=== PATIENT | female | born 1950 | race Caucasian/White ===

== ENCOUNTER 2016-09-13 22:09 | Inpatient (IN) | payer MEDICARE, MEDICAID ==
[~2016-09-13] VITALS: Ht 162.6 cm; Wt 90.8 kg
[~2016-09-13 22:09] MED LIST: ALPR0.5T6 PO; CITA20TA11 PO; LISI20TA PO; METO-448 PO; NORC 5-325 GTB; RES15 PO; RISP2TAB PO; SLOMAG PO
[2016-09-13 22:10] VITALS: Ht 162.6 cm; Wt 90.8 kg
[2016-09-13] MEDS ORDERED: DEXTROSE 10% 1,000 ML IV STA (22:31)
[2016-09-13] MEDS ORDERED: LEVO25TA50 PO (22:45)
[2016-09-13] MEDS ORDERED: AMLO5TAB4 PO (22:45)
[2016-09-13] MEDS ORDERED: PANT40TA4 PO (22:46)
[2016-09-13] MEDS ORDERED: FURO20TA3 PO (22:46)
[2016-09-13] MEDS ORDERED: ISOS30TA5 PO (22:46)
[2016-09-13] MEDS ORDERED: ESCI10TA PO (22:47)
[2016-09-13] MEDS ORDERED: AMIO200T2 PO (22:47)
[2016-09-13] MEDS ORDERED: ATOR80TA75 PO (22:47)
--- NOTE | 2016-09-13 22:49 | ERA ---
ER Documentation Chief Complaint Date/Time DATE: 09/13/16 TIME: 22:48 Chief Complaint ALOC/ nonresponsive, blood sugar less than 20 HPI The patient is a 65-year-old female, presenting to the ER because of altered level of consciousness since possibly 8 PM according to the nursing staff. The last known normal was unknown. When the EMS arrived, Accu-Chek was less than 20. She was treated with glucagon 1 mg IM with minimal response. 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 Medications Home Meds Reported Medications Atorvastatin* (Atorvastatin*) 80 Mg Tablet, 80 MG PO QHS, #30 TAB 09/13/16 Amiodarone Hcl* (Amiodarone Hcl*) 200 Mg Tablet, 200 MG PO BID, #60 TAB 09/13/16 Escitalopram Oxalate* (Lexapro*) 10 Mg Tablet, 10 MG PO DAILY, #30 TAB 09/13/16 Pantoprazole* (Pantoprazole*) 40 Mg Tablet.dr, 40 MG PO DAILY, TAB 09/13/16 Furosemide* (Furosemide*) 20 Mg Tablet, 20 MG PO DAILY, #60 TAB 09/13/16 Isosorbide Mononitrate* (Isosorbide Mononitrate*) 30 Mg Tab.er.24h, 30 MG PO DAILY, TAB 09/13/16 Amlodipine Besylate* (Norvasc*) 5 Mg Tablet, 5 MG PO DAILY, TAB 09/13/16 Levothyroxine Sodium* (Levoxyl*) 25 Mcg Tablet, 25 MCG PO BEFORE BREAKFAST, #30 TAB 09/13/16 Discontinued Reported Medications Temazepam (Restoril) 15 Mg Cap, 15 MG PO PRN 07/16/13 Hydrocodone Bit-Acetaminophen* (Irving*) 1 Tab Tab, 1 TAB GTB PRN 07/16/13 Alprazolam* (Alprazolam*) 0.5 Mg Tablet, 0.5 MG PO Q6HRS PRN 07/16/13 Risperidone (Risperdal) 2 Mg/Tab Tab.rapdis, 2 MG PO QHS 07/16/13 Metoprolol Tartrate* (Lopressor*) 25 Mg Tab, 25 MG PO DAILY 07/16/13 Magnesium Chloride* (Mag 64*) 64 Mg Tabsr, 64 MG PO DAILY 07/16/13 Lisinopril* (Prinivil*) 20 Mg Tablet, 20 MG PO DAILY 07/16/13 Citalopram Hydrobromide* (Celexa*) 20 Mg Tablet, 20 MG PO DAILY 07/16/13 Allergies Allergies: Coded Allergies: No Known Drug Allergies (Verified Allergy, Unknown, 09/13/16) PMhx/Soc Hx Neurological Disorder: Yes (cognitive impairment) Hx Respiratory Disorders: No ( Asthma when she was a child) Hx Cardiac Disorders: No (HTN) Hx Miscellaneous Medical Probl: Yes Hx Alcohol Use: No Hx Substance Use: No Hx Tobacco Use: No Physical Exam Vitals Vital Signs Date Time Temp Pulse Resp B/P Pulse Ox O2 Delivery O2 Flow Rate FiO2 09/14/16 01:15 92 16 94/51 100 Mechanical Ventilator 09/14/16 01:00 91 16 83/69 100 Mechanical Ventilator 09/14/16 00:45 91 16 91/69 100 Mechanical Ventilator 09/14/16 00:30 92 16 99/76 100 Mechanical Ventilator 09/14/16 00:15 93 16 123/109 100 Mechanical Ventilator 09/14/16 00:00 91 16 74/31 100 Mechanical Ventilator 09/13/16 23:45 89 16 74/31 100 Mechanical Ventilator 09/13/16 23:30 93 20 93 100 09/13/16 23:20 98.6 90 16 53/34 100 Mechanical Ventilator 09/13/16 23:01 Non Rebreather 15 09/13/16 22:45 72 24 100 Mechanical Ventilator 09/13/16 22:43 88 20 100 100 09/13/16 22:22 69 26 149/122 98 Mechanical Ventilator 09/13/16 22:10 98.0 115 16 144/129 84 Physical Exam Const: acute distress. Head: Atraumatic. Eyes: Normal Conjunctiva. ENT: Normal External Ears, Nose and Mouth. Neck: Full range of motion. No meningismus. Resp: Labored and shallow Cardio: Regular tachycardic Abd: Soft, obese, normal bowel sounds Skin: No petechiae or rashes. Back: No midline or flank tenderness. Ext: No cyanosis, or edema. Neur: Obtunded GCS of 3 Psych: Unable to perform due to condition. Result Diagram: 09/13/16224909/13/162249 Results 24 hrs Laboratory Tests Test 09/13/16 22:32 09/13/16 22:50 09/13/16 22:55 09/13/16 23:15 Bedside Glucose 162mg/dL White Blood Count 24.610^3/ul Red Blood Count 3.4610^6/ul Hemoglobin 10.0g/dl Hematocrit 29.6% Mean Corpuscular Volume 85.5fl Mean Corpuscular Hemoglobin 28.9pg Mean Corpuscular Hemoglobin Concent 33.8g/dl Red Cell Distribution Width 20.2% Platelet Count 76204^3/UL Mean Platelet Volume 10.1fl Neutrophils % 88.0% Band Neutrophils % 6.0% Lymphocytes % 4.0% Monocytes % 2.0% Neutrophils # 21.610^3/ul Lymphocytes # 1.010^3/ul Monocytes # 0.510^3/ul Platelet Estimate PLT APPEAR ADEQUATE Sodium Level 125mmol/L Potassium Level 4.8mmol/L Chloride Level 95mmol/L Carbon Dioxide Level 9mmol/L Anion Gap 26 Blood Urea Nitrogen 18mg/dl Creatinine 2.30mg/dl Glucose Level 217mg/dl Lactic Acid Level 11.3mmol/L Calcium Level 6.5mg/dl Magnesium Level 2.0mg/dl Total Bilirubin 2.3mg/dl Direct Bilirubin 1.90mg/dl Indirect Bilirubin 0.4mg/dl Aspartate Amino Transf (AST/SGOT) 1424IU/L Alanine Aminotransferase (ALT/SGPT) 398IU/L Alkaline Phosphatase 481IU/L Creatine Kinase 520IU/L Troponin I 0.075ng/ml Total Protein 5.1g/dl Albumin 1.7g/dl Globulin 3.40g/dl Albumin/Globulin Ratio 0.50 Salicylates Level < 1.0mg/dl Acetaminophen Level < 10.0ug/ml Ethyl Alcohol Level < 10.0mg/dl Prothrombin Time 25.2Sec Prothrombin Time Ratio 2.0 INR International Normalized Ratio 2.26 Activated Partial Thromboplast Time Sec Blood Gas Specimen Source Blood arterial Arterial Blood Date Drawn 09/14/2016 1:17:34 AM Arterial Blood pH (Temp corrected) 7.153 Arterial Blood pCO2 (Temp correct) 21.0mmhg Arterial Blood pO2 (Temp corrected) 98.7mmHG Arterial Blood HCO3 7.3mmol/L Arterial Blood Base Excess -20.0mmol/L Arterial Blood Oxygen Saturation 95.7mmHG Dhruv Test N/A Arterial Blood Gas Puncture Site Femoral Arterial Blood Carboxyhemoglobin 0.3% Arterial Blood Methemoglobin 0.5% Blood Gas A-a O2 Differential 595.9mmHg Oxyhemoglobin Percent 94.9% Total Hemoglobin 11.5g/dl Blood Gas Temperature 36.0C Blood Gas Respiration Rate 20.0 Blood Gas Actual Respiration Rate 20 Blood Gas Modality VENT - AC FiO2 100.0% Blood Gas Tidal Volume 600.0mL Blood Gas Low PEEP Setting 5.0cmH2O Blood Gas Critical Value Read Back MILLA WAYNE Blood Gas Notified Whom Loly MURILLO RCP Blood Gas Notified Time 09/14/2016 1:23:59 AM Test 09/14/16 00:20 Lactic Acid Level 10.7mmol/L Current Medications Medications (Trade) Dose Ordered Sig/Demetra Route PRN Reason Start Time Stop Time Status Last Admin Dose Admin Dextrose 1,000 ml @ 150 mls/hr Q6H40M STAT IV 09/13/16 22:31 09/14/16 05:10 Sodium Chloride 3,410 ml @ 3,410 mls/hr BOLUS X1 ONCE IV 09/13/16 23:30 09/14/16 00:29 DC 09/14/16 00:16 Norepinephrine 250 ml @ ud STK-MED ONCE .ROUTE 09/13/16 23:26 09/13/16 23:27 DC Vancomycin HCl 250 ml @ 125 mls/hr ONCE IVPB 09/14/16 00:00 09/14/16 01:59 DC 09/14/16 00:43 Imipenem/ Cilastatin Sodium 100 ml @ 100 mls/hr ONCE ONCE IVPB 09/14/16 00:00 09/14/16 00:59 DC 09/14/16 00:43 Norepinephrine (Levophed) 250 ml @ 1.875 mls/ hr TITRATE IV 09/14/16 00:00 09/14/16 03:52 Procedures/MDM [place] [id number] Radiology Main Line: [phone] DIAGNOSTIC IMAGING REPORT Patient: APRIL TABARES : 1950 Age: 65 Sex: F MR #: [id number] DOS: 09/13/162228 Ordering MD: ESTEFANÍA LOYOLA MD Location: E/R Room/Bed: PROCEDURE: XR Chest. CLINICAL INDICATION: Endotracheal tube placement. TECHNIQUE: Portable AP upright view of the chest was obtained. COMPARISON: None. FINDINGS: The cardiomediastinal silhouette is within upper normal limits. Distal tip of the endotracheal tube projects 2.7 cm above the bella in satisfactory position. The lungs are clear. There is no evidence for pleural effusion, pneumothorax or pulmonary vascular congestion. The osseous structures are intact with no evidence for acute abnormality. RPTAT:HJJR IMPRESSION: 1. Distal tip of the endotracheal tube projecting 2.7 cm above the bella in satisfactory position. 2. Otherwise no evidence for acute intrathoracic pathology. Physician Levi Date Time Electronically viewed and signed by Shailesh Zambrano Physician on 09/13/2016 23:57 JR/ CC: ESTEFANÍA LOYOLA MD [place] [address] Radiology Main Line: [phone] DIAGNOSTIC IMAGING REPORT Patient: APRIL TABARES : 1950 Age: 65 Sex: F MR #: [id number] DOS: 09/13/162228 Ordering MD: ESTEFANÍA LOYOLA MD Location: E/R Room/Bed: PROCEDURE: CT Brain without contrast. CLINICAL INDICATION: Acute loss of consciousness TECHNIQUE: A CT of the brain was performed on a [place] 64-slice CT scanner utilizing axial imaging from the skull base through the vertex without IV contrast. Multiplanar reformatted images were made. Images were reviewed on a PACS workstation. The CTDIvol is 43.05 mGy and the DLP is 720.23 mGycm. One of the following 3 dose reduction techniques were used: Automated exposure control; adjustment of the mA and/or kV according to patient size; or use of iterative reconstruction technique. COMPARISON: 07/16/2013 CT brain FINDINGS: There is no intracranial hemorrhage, mass effect, or midline shift. No extra- axial fluid collection is seen. The ventricles and sulci are age appropriate. Mild diffuse volume loss is present. Subtle decreased attenuation is present in the bilateral subcortical white matter, bilateral centrum semiovale and bilateral periventricular white matter compatible with mild chronic microvascular ischemic disease. decreased attenuation is also noted in the bilateral insula. Mild vascular calcifications are present of the intracranial internal carotid arteries. The visualized scalp and calvarium are normal. The bilateral orbits are normal. The bilateral paranasal sinuses are remarkable for chronic mucosal thickening in the left anterior and posterior ethmoid sinus. The bilateral mastoid air cells and middle ear cavities are clear. IMPRESSION: 1. No evidence of acute intracranial hemorrhage, infarcts or acute intracranial pathology. Consider MRI with diffusion to further evaluate. 2. Mild chronic bilateral microvascular ischemic disease and diffuse volume loss. 3. Mild atherosclerotic vascular disease. 4. Chronic left ethmoid sinus disease. RPTAT: HDC .Mackenzie Reza MD, MD Date Time Electronically viewed and signed by .Mackenzie Reza MD, MD on 09/13/2016 23: 30 .C/ CC: ESTEFANÍA LOYOLA MD Abdominal pelvic CT is pending EKG: Read by emergency physician Rate/Rhythm: Normal Sinus Rhythm 90 beats/min QRS, ST, T-waves: No ST elevation, no T inversion, first-degree AV block Impression: Abnormal EKG MEDICAL MAKING DECISION: Upon arrival to the ER, she was treated with 2 A of D50 IV, Accu-Chek was 162. However she remains obtunded nonresponsive and unable to protect her airway. She was seen immediately intubated without any difficulty. She went treated with nasogastric tube, Worthington catheter. She was treated with D10 water at 150 mL /h Accu-Chek will be done every hour She was treated with normal saline 30 mL/kg, vancomycin IV, imipenem IV, Levophed drip, dopamine drip, Vlad-Synephrine drip The differential diagnoses considered include but are not limited to medication non-compliance, alcohol intoxication or withdrawal, drug intoxication or withdrawal, endocrine disorder, trauma, CVA, tumor, metabolic encephalopathy, septic encephalopathy pneumonia, pyelonephritis. Admit MDM: Patient's infectious symptoms have not stabilized and the patient is at risk of rapid decompensation. The patient will be admitted for careful hydration, antibiotic therapy, and infectious source control. Severe Sepsis criteria: Infectious source: Unknown End organ damage indicated by: Lactate > 2.0 mmol/L Hypotension (SBP < 90 or >40 mmHG drop or MAP < 65) Acute Resp Failure (sat < 92% w/o oxygen) Sepsis Management: Time of recognition of severe sepsis/septic shock: 23 hr Within 3 hours of recognition: Blood cultures x 2 before broad-spectrum antibiotics: Yes 30 ml/kg NS bolus completed Initial lactate 11.3 Repeat lactate pending Critical Care: Critical care time 75 minutes Emergent fluid management while maintaining close respiratory support. Provision of immediate and broad-spectrum antibiotic therapy. Simultaneous assessment for possible sources in order to direct targeted therapy. Consideration for invasive and chemical support to prevent cardiopulmonary collapse. Septic Shock Assessment: Any lactic acid > 4.0 yes Persistent hypotension (SBP < 90 or 40 mmHg drop, MAP < 65) despite 30 mL/kg IV fluid bolusyes Volume Re-assessment for Septic Shock (post 30 ml/kg bolus): Temp98, BP85/63, HR98, RR16, Pox100 on vent Heart regular rate & rhythm Lungs no crackles Skin Warm & dry & pink Cap Refill less than 2 seconds Peripheral pulses radially present Persistent Hypotension Treatment: Comfort care yes Central line rt femoral vein Vasopressor started Norepinehrine, dopamine I considered further perfusion assessment with CVP measurement, SCVO2, bedside ultrasound volume assessment, passive leg raise, trial of further fluid bolus. And proceeded with pressors Endotracheal Intubation by me: Pre assessment performed. See preceding note for details. She went pretreated with etomidate 20 mg IV, rocuronium 80 mg IV Pre-oxygenation performed with 100% oxygen RSI: Performed w/o complication or hypoxic events. Medications as ordered. Blade: Knox scope ET Tube: 7.5 cm Depth: 21 cm at the lip Intubation confirmed by colorimetric CO2, equal breath sounds, quiet over the stomach. Central Line Placement by me: Patient consented, sterilely draped, full prep, gown, glove, mask, time out performed. Anesthesia: 1% lidocaine locally Location: Right femoral vein Device: Multiple lumen Technique: Seldinger technique. Secured with suture. Results: Venous return from all ports with easy saline flush. No complications. Guide wire retrieved and disposed of. [ED Ultrasound: Central line placed by me using concurrent ultrasound guidance. Real time image archived in the medical record confirms vascular anatomy. ESTEFANÍA LOYOLA MD Sep 13, 2016 22:49 Guide wire retrieved and disposed of. [ED Ultrasound: Central line placed by me using concurrent ultrasound guidance. Real time image archived in the medical record confirms vascular anatomy. ESTEFANÍA LOYOLA MD Sep 13, 2016 22:49
[2016-09-13 22:57] LABS: ADD SCAN DIFF NO
[2016-09-13 23:05] LABS: ABNORMAL IP MESSAGE 1; HEMATOCRIT 29.6 % (37.0-47.0); MEAN CORPUSCULAR HEMOGLOBIN 28.9 pg (29.0-33.0); MEAN CORPUSCULAR HGB CONC 33.8 g/dl (32.0-37.0); MEAN CORPUSCULAR VOLUME 85.5 fl (82.0-101.0); MEAN PLATELET VOLUME 10.1 fl (7.4-10.4); PLATELET COUNT 339 10^3/UL (140-415); RED BLOOD COUNT 3.46 10^6/ul (4.20-5.40); RED CELL DISTRIBUTION WIDTH 20.2 % (11.5-14.5); WHITE BLOOD COUNT 24.6 10^3/ul (4.8-10.8)
[2016-09-13 23:20] VITALS: TEMP 98.6
[2016-09-13 23:26] LABS: INR 2.26; PROTIME 25.2 Sec (12.2-14.2)
[2016-09-13] MEDS ORDERED: NORepinephrine 8MG/250 ML (PMX 250 ML ONE (23:26)
[2016-09-13] MEDS ORDERED: SOD CHLORIDE 0.9% IV ONE (23:30)
--- NOTE | 2016-09-13 23:31 | RADRPT ---
PROCEDURE: CT Brain without contrast. CLINICAL INDICATION: Acute loss of consciousness TECHNIQUE: A CT of the brain was performed on a [employer] III 64-slice CT scanner utilizing axial imaging from the skull base through the vertex without IV contrast. Multiplanar reformatted images were made. Images were reviewed on a PACS workstation. The CTDIvol is 43.05 mGy and the DLP is 720 .23 mGycm. One of the following 3 dose reduction techniques were used: Automated exposure control; adjustment of the mA and/or kV according to patient size; or use of iterative reconstruction technique. COMPARISON: 07/16/2013 CT brain FINDINGS: There is no intracranial hemorrhage, mass effect, or midline shift. No extra-axial fluid collection is seen. The ventricles and sulci are age appropriate. Mild diffuse volume loss is present. Subtl e decreased attenuation is present in the bilateral subcortical white matter, bilateral centrum semi ovale and bilateral periventricular white matter compatible with mild chronic microvascular ischemic disease. decreased attenuation is also noted in the bilateral insula. Mild vascular calcification s are present of the intracranial internal carotid arteries. The visualized scalp and calvarium are normal. The bilateral orbits are normal. The bilateral para nasal sinuses are remarkable for chronic mucosal thickening in the left anterior and posterior ethmo id sinus. The bilateral mastoid air cells and middle ear cavities are clear. IMPRESSION: 1. No evidence of acute intracranial hemorrhage, infarcts or acute intracranial pathology. Consider MRI with diffusion to further evaluate. 2. Mild chronic bilateral microvascular ischemic disease and diffuse volume loss. 3. Mild atherosclerotic vascular disease. 4. Chronic left ethmoid sinus disease. RPTAT: HDC .Mackenzie Reza MD, MD Date Time Electronically viewed and signed by .Mackenzie Reza MD, MD on 09/13/2016 23:30 .C/
--- NOTE | 2016-09-13 23:57 | RADRPT ---
PROCEDURE: XR Chest. CLINICAL INDICATION: Endotracheal tube placement. TECHNIQUE: Portable AP upright view of the chest was obtained. COMPARISON: None. FINDINGS: The cardiomediastinal silhouette is within upper normal limits. Distal tip of the endotracheal tube projects 2.7 cm above the bella in satisfactory position. The lungs are clear. There is no evide nce for pleural effusion, pneumothorax or pulmonary vascular congestion. The osseous structures are intact with no evidence for acute abnormality. RPTAT:HJJR IMPRESSION: 1. Distal tip of the endotracheal tube projecting 2.7 cm above the bella in satisfactory position. 2. Otherwise no evidence for acute intrathoracic pathology. Physician Levi Date Time Electronically viewed and signed by Physician Levi on 09/13/2016 23:57 JR/
[2016-09-14] VITALS (34 sets, daily range): BP systolic 39–108; BP diastolic 19–91; PULSE 0–88; RESP 12–22
[2016-09-14] MEDS ORDERED: IMIPENEM-CILAST 500MG IV (PMX) 100 ML IVPB ONE
[2016-09-14] MEDS ORDERED: ETOMIDATE 20 MG INJ ONE
[2016-09-14] MEDS ORDERED: VANCOMYCIN 1 GM (PMX) 250 ML IVPB SCH
[2016-09-14] MEDS ORDERED: ROCURONIUM 50 MG INJ ONE
[2016-09-14 00:16] LABS: ALBUMIN 1.7 g/dl (3.3-4.9); CHLORIDE 95 mmol/L (97-110); SODIUM 125 mmol/L (135-144)
[2016-09-14 00:17] LABS: POTASSIUM 4.8 mmol/L (3.5-5.1)
[2016-09-14 00:18] LABS: ANION GAP 26 (8-16); BILIRUBIN,INDIRECT 0.4 mg/dl (0-1.1); BILIRUBIN,TOTAL 2.3 mg/dl (0.2-1.3)
[2016-09-14 00:19] LABS: ALANINE AMINOTRANSFERASE 398 IU/L (13-69); ALKALINE PHOSPHATASE 481 IU/L (42-121); BLOOD UREA NITROGEN 18 mg/dl (7-20); CALCIUM 6.5 mg/dl (8.4-10.2); CREATINE KINASE 520 IU/L (23-200); GLUCOSE 217 mg/dl (70-220); TOTAL PROTEIN 5.1 g/dl (6.1-8.1)
[2016-09-14 00:31] LABS: TROPONIN-I 0.075 ng/ml (0.00-0.12)
[2016-09-14 00:35] LABS: ASPARTATE AMINO TRANSFERASE 1424 IU/L (15-46)
[2016-09-14 00:37] LABS: ACETAMINOPHEN < 10.0 ug/ml (10.0-30.0); ETHANOL < 10.0 mg/dl; SALICYLATE < 1.0 mg/dl (5.0-30.0)
[2016-09-14 00:40] LABS: CARBON DIOXIDE 9 mmol/L (21-31)
[2016-09-14 00:59] LABS: MONOCYTE # 0.5 10^3/ul (0.3-0.9); NEUTROPHIL # 21.6 10^3/ul (1.6-7.5)
[2016-09-14 01:00] LABS: PLATELET ESTIMATE PLT APPEAR ADEQUATE
[2016-09-14 01:24] LABS: AADO2 Arterial 595.9 mmHg (7.0-24.0); Arterial COHb 0.3 % (0.0-3.0); Arterial Fraction of Oxyhgb 94.9 % (93.0-99.0); Arterial HCO3 7.3 mmol/L (22.0-26.0); Arterial MetHb 0.5 % (0.0-1.5); Arterial Total Hemglobin 11.5 g/dl (12.0-18.0); MODE VENT - AC
[2016-09-14 02:43] LABS: INR 2.54; PROTIME 27.7 Sec (12.2-14.2); PT RATIO 2.2
[2016-09-14] MEDS: DOPamine-D5W 1.6 MG/ML 250 ML IV SCH ×3 (02:45→09:05)
[2016-09-14 02:53] LABS: PARTIAL THROMBOPLASTIN TIME 120.4 Sec (25.0-35.0)
[2016-09-14] MEDS: NORepinephrine 8MG/250 ML (PMX 250 ML IV SCH ×2 (03:52→04:53)
[2016-09-14] MEDS: PHENYLephrine 20MG IN 250 ML 250 ML IV SCH ×2 (03:53→04:54)
[2016-09-14] MEDS ORDERED: VASOPRESSIN 60 UNIT in DEXTROSE 5% 57 ML IV SCH (04:00)
[2016-09-14] MEDS ORDERED: SOD CHLORIDE 0.9% 1,000 ML IV ONE ×2 (04:05→08:30)
--- NOTE | 2016-09-14 04:19 | RADRPT ---
PROCEDURE: CT of the abdomen and pelvis without contrast CLINICAL INDICATION: Abdominal distension. TECHNIQUE: Spiral CT images through the abdomen and pelvis without the use of contrast. The admin istered radiation dose is CTDI 27.6 and DLP 1640.3. One or more of the following dose reduction kayla hniques were used: automated exposure control, adjustment of the mA and/or kV according to patient s ize, or use of iterative reconstruction technique. COMPARISON: None FINDINGS: Lack of oral and intravenous contrast somewhat limits evaluation. Small bilateral pleural effusio ns are seen with associated compressive atelectasis.. Moderate subdiaphragmatic free fluid is seen on the left. Mild ascites is seen elsewhere throughout the abdomen pelvis.. The study is limited by body habitus. Cardiomegaly. Aortic and coronary art alysia calcification. Trace pericardial fluid. The liver is slightly enlarged, measuring 18 cm in don gth. Small probable cyst anteriorly in the right lobe. The spleen does not appear enlarged. The s tomach is distended with air and fluid.. The right adrenal, kidneys, and pancreas are unremarkable in appearance. There is a 1.1 cm left adrenal nodule which may represent an adenoma but is difficul t to characterize due to artifact from body habitus and the patient's arms. Diffuse edema of the krishnan bcutaneous fat is seen. The appendix is normal in appearance. Mild prominence of the urinary bladde r wall is likely due to under-distension. Right femoral venous line is seen in place. There is a la rge lobulated fluid collection medial to the line in the right groin measuring 6.3 x 4.3 cm. Layering density is seen posteriorly and surrounding stranding is seen. The fluid collection extend s into the medial upper thigh. The uterus and left adnexa are unremarkable. Small probable right p araovarian cyst. Mild presacral stranding. Evaluation of the bowel is limited by lack of oral cont rast. Mild gaseous distension of small bowel loops is seen. Distension is most prominent in the le ft upper quadrant. There is not a distinct transition point, however. There is a suggestion of mil d wall thickening of the ascending colon. No evidence for diverticulitis. No definite pneumatosis or portal venous gas. Atherosclerotic change of the aorta and branches. There is mild degenerative change of the spine. IMPRESSION: Right femoral venous line with fairly large medial right thigh hematoma with some layering blood wit hin. Clinical observation to exclude ongoing or expanding hematoma is suggested. If pseudoaneurysm is suspected clinically, Doppler ultrasound evaluation could be performed. Mild distension of multiple small bowel loops without definite transition point, pneumatosis, or por kevin venous gas. Suggestion of mild colonic wall thickening. Mild colitis and secondary ileus would be most likely. If symptoms persist or worsen, study with oral contrast could be considered. Free fluid particularly in the left upper quadrant. Small effusions with bibasilar atelectasis. Possible small left adrenal adenoma.. Results were called to Robb Bell at 09/14/2016 4:15:25 AM RPTAT: HLBE Lita Conde Physician Date Time Electronically viewed and signed by Lita Conde Physician on 09/14/2016 04:18 LE/
[2016-09-14] MEDS ORDERED: LORAZEPAM 2 MG INJ IV PRN (04:30)
[2016-09-14] MEDS ORDERED: ONDANSETRON 4 MG INJ IV PRN (04:30)
[2016-09-14] MEDS ORDERED: morphine 2 MG INJ IV PRN (04:30)
[2016-09-14] MEDS ORDERED: ACETAMINOPHEN 650 MG SUPP PR PRN (04:30)
[2016-09-14] MEDS ORDERED: ACETAMINOPHEN 325 MG TAB PO PRN (04:30)
[2016-09-14] MEDS ORDERED: ALBUTEROL/IPRATROPIUM (NEB) 3 ML AMP NEB PRN (04:30)
[2016-09-14] MEDS ORDERED: VANCOMYCIN IV PER PHARMACY XX SCH (04:30)
[2016-09-14] MEDS ORDERED: DEXTROSE 5%-0.9% NACL 1,000 ML IV SCH (05:00)
[2016-09-14] MEDS ORDERED: EPINEPHrine 4 MG in SOD CHLORIDE 0.9% 246 ML IV SCH (05:15)
[2016-09-14 05:17] LABS: ADD SCAN DIFF NO
[2016-09-14] MEDS ORDERED: NA BICARBONATE 8.4% 50 ML SYG ONE ×2 (05:20→07:00)
[2016-09-14] MEDS ORDERED: NA BICARBONATE 8.4% 50 ML SYG IV ONE (05:31)
[2016-09-14 05:34] LABS: ABNORMAL IP MESSAGE 1; HEMATOCRIT 28.6 % (37.0-47.0); HEMOGLOBIN 9.2 g/dl (12.0-16.0); MEAN CORPUSCULAR HEMOGLOBIN 28.7 pg (29.0-33.0); MEAN CORPUSCULAR HGB CONC 32.2 g/dl (32.0-37.0); MEAN CORPUSCULAR VOLUME 89.1 fl (82.0-101.0); MEAN PLATELET VOLUME 10.2 fl (7.4-10.4); PLATELET COUNT 341 10^3/UL (140-415); RED BLOOD COUNT 3.21 10^6/ul (4.20-5.40); RED CELL DISTRIBUTION WIDTH 20.6 % (11.5-14.5)
[2016-09-14] MEDS ORDERED: SODIUM BICARBONATE (IV ADD) 100 MEQ in DEXTROSE 5%-0.9% NACL 900 ML IV SCH ×4 (05:45)
[2016-09-14] MEDS: PHENYLephrine 40 MG in DEXTROSE 5% 496 ML IV SCH ×2 (05:49→08:23)
[2016-09-14] MEDS ORDERED: PANTOPRAZOLE 40 MG INJ IV SCH (06:00)
[2016-09-14] MEDS ORDERED: PHYTONADIONE 5 MG in DEXTROSE 5% 50 ML IVPB ONE (06:00)
[2016-09-14] MEDS ORDERED: VANCOMYCIN 750 MG in SOD CHLORIDE 0.9% 150 ML IVPB ONE (06:00)
[2016-09-14 06:06] LABS: ALBUMIN 1.3 g/dl (3.3-4.9); ALBUMIN/GLOBULIN RATIO 0.46; BILIRUBIN,DIRECT 1.6 mg/dl (0.00-0.20); BILIRUBIN,INDIRECT 0.1 mg/dl (0-1.1); BILIRUBIN,TOTAL 1.7 mg/dl (0.2-1.3); CREATININE 1.47 mg/dl (0.44-1.00); POTASSIUM 4.3 mmol/L (3.5-5.1); TOTAL PROTEIN 4.1 g/dl (6.1-8.1)
[2016-09-14 06:11] LABS: CALCIUM 4.6 mg/dl (8.4-10.2)
[2016-09-14] MEDS ORDERED: CALCIUM GLUCONATE 10% 2 GM in SOD CHLORIDE 0.9% 100 ML IVPB ONE (06:30)
--- NOTE | 2016-09-14 06:55 | HP ---
DATE OF ADMISSION: 09/14/2016 TIME SEEN: 4:45 a.m. CHIEF COMPLAINT: Altered mentation. HISTORY: The patient is a 65-year-old female with a history of diabetes, hypertension, asthma, with probable COPD, depression/anxiety, bipolar disorder, hypothyroidism and cognitive impairment who was brought to the ER from a assisted facility for altered mentation and hypoglycemia. When EMS arrived, her blood glucose was found to be less than 20. She was given 1 mg of Glucagon with minim al response. The patient was unresponsive when she was arrived to the ER, and she never lost her pu lse. Initial blood pressure documented in the ER when she came in was 144/129 with a heart rate of 115, respiratory rate 16, temperature 98, and oxygen saturation 84%. After she was intubated, an lori r later, her blood pressure has been documented to be as low as 53/34. Her ABG on ventilator shows a pH of 7.15, pCO2 of 21, pO2 of 99, bicarbonate of 7. Her initial point of care glucose in the ER was 162 and it was 217 on her BMP. She had multiple lab abnormalities including a sodium of 125, creatinine 2.3, calcium 6.5, but with albumin of 1.7, total bilirubin 2.3, AST 1424, ALT 400, alkaline phosphatase almost 500, WBC of almost 25,000, hemoglobin 10. Her INR was also elevated about 2.5. While the patient was in the ER, she was started on multiple pressors. She was started on D10W for hypoglycemia. Note, however, that the fluid was without sodium and her initial sodium when she came in was still 125. Currently, she is in ICU and has been persistently hypotensive and on 4 pressors . Her blood pressure was mostly in the 60s. Epinephrine was just started right now and her blood p ressure just went up to 108/91. Currently, blood culture and urine culture are pending, but her uri ne looks cloudy and thick. No urinalysis is available so far. On her initial imaging, brain CT shows no acute findings. CT abdomen and pelvis was done and it luisa ws a fairly large medial right thigh hematoma where the right femoral venous line was placed. REVIEW OF SYSTEMS: Unable to assess. PAST MEDICAL HISTORY: As per HPI. PAST SURGICAL HISTORY: Left total knee surgery. SOCIAL HISTORY: Positive for ____ ALLERGIES: NO KNOWN DRUG ALLERGIES. HOME MEDICATIONS: 1. Amiodarone. 2. Norvasc. 3. Lipitor. 4. Imdur. 5. Lexapro. 6. Lasix. 7. Protonix. 8. Levothyroxine. PHYSICAL EXAMINATION VITAL SIGNS: Currently on the monitor 108/91, heart rate 77, respiratory rate 20, temperature earli er was 95, and oxygen saturation 96% on 100% FIO2. GENERAL: The patient is intubated, currently on 5 pressors. She is obese. She is unresponsive to noxious stimuli. HEENT: No obvious head deformity. Her pupils are dilated, nonreactive to light. No corneal reflex . The patient also does not have a gag reflex. CARDIOVASCULAR: Regular rate and rhythm. LUNGS: Decreased breath sounds anteriorly. ABDOMEN: Morbidly obese. EXTREMITIES: There is edema in both upper and lower extremities. There is also on the right upper thigh groin area, there is some swelling with some oozing of blood. NEUROLOGIC: The patient currently intubated. She is not responsive. No gag reflex, no corneal ref scott. Pupils are dilated and nonreactive and generalized. LABORATORY DATA: As mentioned in the HPI. IMAGING: Brain CT abdomen and CT of the abdomen pelvis results as mentioned in the HPI. IMPRESSION: 1. Severe septic shock, likely from urinary tract infection. 2. Altered mentation/unresponsiveness, secondary to hypoglycemia. 3. Severe hypoglycemia. 4. Ventilator dependent respiratory failure. 5. Presumed acute kidney injury. 6. Likely shock liver. 7. Hyponatremia. PLAN: We will continue ventilator support. Will continue pressor support. Note that currently she is on 5 pressors. She is going be continued on broad spectrum antibiotic. We will follow up on culture results. I will switch her fluids from D10W and will add sodium given the patient initial ly has been hyponatremic. We will place pulmonary, ID, nephrology as well as a neurology consult. Patient's neurological examination is suggestive of likely permanent brain damage. She is also curre ntly on 5 pressors. At this point, unfortunately, she does have a very poor prognosis. We will try to reach family members to discuss this issue. Further workup and management per clinical course. Total critical time spent is about 45 minutes. Dictated By: KEYON QUIROZ/HEATHER Conf#: [id number] [facility]#: [id number]
[2016-09-14 07:59] LABS: LYMPHOCYTES # 2.6 10^3/ul (0.8-2.9); NEUTROPHIL # 16.8 10^3/ul (1.6-7.5)
--- NOTE | 2016-09-14 08:08 | CONS ---
Date/Time of Note Date/Time of Note DATE: 09/14/16 TIME: 08:03 Assessment/Plan Assessment/Plan Additional Assessment/Plan Chest x-ray was reviewed from yesterday which is essentially clear. Patient also CT of the head done which is unremarkable. CT abdomen is showing stability mild colitis. Ventilator settings; AC of 20, tidal volume 600, PEEP of 5, 70% FiO2. Patient currently on Levophed at 30 mics per minute sodium bicarb drip at 75 mL/ h patient also received additional sodium bicarb intravenously. Dopamine 20 mcg /min and phenylephrine at cedar mics per minute Assessment recommendations; 1. Patient admitted for severe sepsis likely UTI 2. Multiple other comorbidities including history of diabetes, hypertension, asthma. 3. Profound shock. 5. Shock liver. 6. Profound metabolic acidosis. Continue current supportive care. Prognosis is extremely poor. Consultation Date/Type/Reason Admit Date/Time Sep 14, 2016 at 01:15 Date of Consultation: Sep 14, 2016 Type of Consultation: Pulmonary/critical care Reason for Consultation Pulmonary consultation requested for evaluation of respiratory failure. History presenting; patient is a 65-year-old lady who was admitted yesterday transferred [facility] with altered mental status, patient was diagnosed with severe hypoglycemia was given intravenous glucose however the patient condition did not improve and she developed respiratory failure and had to be intubated by the ER physician. Patient also has been severely hypotensive requiring high-dose combination pressor support. Remains unresponsive. History was obtained from medical records. Past medical history; 1. History of obesity 2. Diabetes. 3. Hypertension. 4. Asthma. 5. Cognitive impairment. 6. History of left knee surgery. Medications; were reviewed. Allergies; are none. Social history, family history, occupational history's are not available. Review of systems; currently unable to be obtained. General exam; elderly woman, orally intubated, unresponsive. Social History Smoking Status: Unknown if ever smoked Exam/Review of Systems Vital Signs Vitals Vital Signs Date Time Temp Pulse Resp B/P Pulse Ox O2 Delivery O2 Flow Rate FiO2 09/14/16 06:45 70 20 41/19 09/14/16 06:00 94 09/14/16 05:57 100 09/14/16 05:00 96.0 09/14/16 03:38 Mechanical Ventilator 09/13/16 23:01 15 Intake and Output 4/09/13/16 09/14/16 15:00 23:00 07:00 Intake Total 1754.95 ml Output Total 15 ml Balance 1739.95 ml Exam HEENT exam is; supple neck, JVD difficult to see because of thick neck, pupils are dilated nonreactive to light. Patient is strongly icteric. Has bilateral subconjunctival edema. No neck masses. No thyromegaly, no neck masses, orally intubated. Chest exam; diminished but clear vessel. S1-S2 audible, no murmurs. Regular rhythm. Abdomen exam is; protuberant, no scars are present. Umbilicus is inverted. Bowel sounds are absent. Extremity exam; trace peripheral edema. There is a hematoma around the right upper thigh. There is a right femoral central venous line in place. Pulses are feeble bilaterally. MIRROR INSPECTOR examination : patient remains unresponsive. Results Result Diagram: 09/14/16 0500 09/14/16 0500 Results 24 hrs Laboratory Tests Test 09/13/16 22:32 09/13/16 22:50 09/13/16 22:55 09/13/16 23:15 Bedside Glucose 162 White Blood Count 24.6 H Red Blood Count 3.46 L Hemoglobin 10.0 L Hematocrit 29.6 L Mean Corpuscular Volume 85.5 Mean Corpuscular Hemoglobin 28.9 L Mean Corpuscular Hemoglobin Concent 33.8 Red Cell Distribution Width 20.2 H Platelet Count 339 Mean Platelet Volume 10.1 Neutrophils % 88.0 H Band Neutrophils % 6.0 H Lymphocytes % 4.0 L Monocytes % 2.0 Neutrophils # 21.6 H Lymphocytes # 1.0 Monocytes # 0.5 Platelet Estimate PLT APPEAR ADEQUATE Sodium Level 125 L Potassium Level 4.8 Chloride Level 95 L Carbon Dioxide Level 9 *L Anion Gap 26 H Blood Urea Nitrogen 18 Creatinine 2.30 H Glucose Level 217 Lactic Acid Level 11.3 *H Calcium Level 6.5 L Magnesium Level 2.0 Total Bilirubin 2.3 H Direct Bilirubin 1.90 H Indirect Bilirubin 0.4 Aspartate Amino Transf (AST/SGOT) 1424 H Alanine Aminotransferase (ALT/SGPT) 398 H Alkaline Phosphatase 481 H Creatine Kinase 520 H Troponin I 0.075 Total Protein 5.1 L Albumin 1.7 L Globulin 3.40 H Albumin/Globulin Ratio 0.50 Salicylates Level < 1.0 L Acetaminophen Level < 10.0 L Ethyl Alcohol Level < 10.0 Prothrombin Time 25.2 H Prothrombin Time Ratio 2.0 INR International Normalized Ratio 2.26 Activated Partial Thromboplast Time Blood Gas Specimen Source Blood arterial Arterial Blood Date Drawn 09/14/2016 1:17:34 AM Arterial Blood pH (Temp corrected) 7.153 *L Arterial Blood pCO2 (Temp correct) 21.0 L Arterial Blood pO2 (Temp corrected) 98.7 Arterial Blood HCO3 7.3 *L Arterial Blood Base Excess -20.0 L Arterial Blood Oxygen Saturation 95.7 Dhruv Test N/A Arterial Blood Gas Puncture Site Femoral Arterial Blood Carboxyhemoglobin 0.3 Arterial Blood Methemoglobin 0.5 Blood Gas A-a O2 Differential 595.9 H Oxyhemoglobin Percent 94.9 Total Hemoglobin 11.5 L Blood Gas Temperature 36.0 Blood Gas Respiration Rate 20.0 Blood Gas Actual Respiration Rate 20 Blood Gas Modality VENT - AC FiO2 100.0 Blood Gas Tidal Volume 600.0 Blood Gas Low PEEP Setting 5.0 Blood Gas Critical Value Read Back MILLA WAYNE Blood Gas Notified Whom Loly MURILLO RCP Blood Gas Notified Time 09/14/2016 1:23:59 AM Test 09/14/16 00:20 09/14/16 01:21 09/14/16 02:17 09/14/16 03:47 Lactic Acid Level 10.7 *H 10.9 *H Bedside Glucose 113 108 Prothrombin Time 27.7 H Prothrombin Time Ratio 2.2 INR International Normalized Ratio 2.54 Activated Partial Thromboplast Time 120.4 *H Test 09/14/16 04:59 09/14/16 05:00 09/14/16 07:53 Bedside Glucose 86 178 White Blood Count 24.0 H Red Blood Count 3.21 L Hemoglobin 9.2 L Hematocrit 28.6 L Mean Corpuscular Volume 89.1 Mean Corpuscular Hemoglobin 28.7 L Mean Corpuscular Hemoglobin Concent 32.2 Red Cell Distribution Width 20.6 H Platelet Count 341 Mean Platelet Volume 10.2 Neutrophils % 70.0 Band Neutrophils % 15.0 H Lymphocytes % 11.0 L Monocytes % 4.0 Eosinophils % Neutrophils # 16.8 H Lymphocytes # 2.6 Monocytes # 1.0 H Eosinophils # Sodium Level 124 L Potassium Level 4.3 Chloride Level 104 Carbon Dioxide Level 7 *L Anion Gap 17 #H Blood Urea Nitrogen 14 Creatinine 1.47 H Glucose Level 233 H Lactic Acid Level 10.8 *H Calcium Level 4.6 *L Total Bilirubin 1.7 H Direct Bilirubin 1.60 H Indirect Bilirubin 0.1 Aspartate Amino Transf (AST/SGOT) Alanine Aminotransferase (ALT/SGPT) 800 H Alkaline Phosphatase 524 H Troponin I 0.073 Total Protein 4.1 #L Albumin 1.3 L Globulin 2.80 Albumin/Globulin Ratio 0.46 Medications Medications Current Medications Dopamine HCl/ Dextrose 250 ml @ 6.81 mls/hr TITRATE IV Last administered on 06:56; Admin Dose 68.1 MLS/HR; Start 09/14/16 at 02:30 Vasopressin/ Dextrose (Vasostrict/D5W) 60 ml @ 1.2 mls/hr Q12H IV Last administered on 09/14/16 04:44; Admin Dose 2.4 MLS/HR; Start 09/14/16 at 04:00 Ondansetron HCl (Zofran Inj) 4 mg Q6H PRN IV NAUSEA AND/OR VOMITING; Start at 04:30 Acetaminophen (Tylenol Tab) 650 mg Q6H PRN PO PAIN LEVEL 1-3 OR FEVER; Start at 04:30 Acetaminophen (Tylenol Supp) 650 mg Q4H PRN MD PAIN LEVEL 1-3 OR FEVER; Start 09/14/16 at 04:30 Morphine Sulfate (morphine) 2 mg Q4H PRN IV PAIN LEVEL 7-10; Start 09/14/16 at 04:30 Lorazepam (Ativan) 1 mg Q2H PRN IV ANXIETY; Start 09/14/16 at 04:30 Pantoprazole 40 mg 40 mg DAILY@06 IV Last administered on 09/14/16 05:40; Admin Dose 40 MG; Start 09/14/16 at 06:00 Norepinephrine 16 mg/Dextrose 500 ml @ 1.87 mls/hr TITRATE IV ; Start 09/14/16 at 04:45 Phenylephrine HCl 40 mg/Dextrose 500 ml @ 75 mls/hr TITRATE IV Last administered on 09/14/16 05:49; Admin Dose 225 MLS/HR; Start 09/14/16 at 04:45 Epinephrine 4 mg/ Sodium Chloride 250 ml @ 3.75 mls/hr TITRATE IV Last administered on 09/14/16 05:46; Admin Dose 7.5 MLS/HR; Start 09/14/16 at 05:15 Sodium Bicarbonate 100 meq/Dextrose/ Sodium Chloride 1,000 ml @ 150 mls/hr Q6H40M IV Last administered on 09/14/16 05:51; Admin Dose 150 MLS/HR; Start at 05:45 Calcium Gluconate 2 gm/Sodium Chloride 120 ml @ 60 mls/hr ONCE ONCE IVPB Last administered on 09/14/16 06:57; Admin Dose 60 MLS/HR; Start 09/14/16 at 06 :30; Stop 09/14/16 at 08:29 Imipenem/ Cilastatin Sodium (Primaxin 500 Mg/ 100 ml (Pmx)) 100 ml @ 100 mls/ hr Q8 IVPB ; Start 09/14/16 at 14:00 TANIA LORENZO Sep 14, 2016 08:08
--- NOTE | 2016-09-14 11:24 | DES ---
Date/Time of Note Date/Time of Note DATE: 09/14/16 TIME: 11:21 Discharge/ Summary Admission/Discharge Info Admit Date/Time Sep 14, 2016 at 01:15 Discharge Date/Time Final Diagnosis sepsis Preliminary Cause of sepsis Hospital Course This is a summary. Patient was admitted yesterday transferred from long term with hypotension the patient was intubated by the ER physician started on high-dose pressor support. The patient's family arrived and they told us patient was a DNR status and they wanted her to be terminally extubated which was done a short while ago, the patient immediately after that, I was called to evaluate the patient patient , she did not have any blood pressure , pulse or any spontaneous respirations patient was pronounced at 11:14 AM on 09/14/2016. The patient's family is at bedside. For full details of admitting diagnosis please see the consult note from today. Pending Labs/Cultures Laboratory Tests Test 09/13/16 22:32 09/13/16 22:50 09/13/16 22:55 09/13/16 23:15 Bedside Glucose 162mg/dL (70-220) White Blood Count 24.610^3/ul (4.8-10.8) Red Blood Count 3.4610^6/ul (4.20-5.40) Hemoglobin 10.0g/dl (12.0-16.0) Hematocrit 29.6% (37.0-47.0) Mean Corpuscular Volume 85.5fl (82.0-101.0) Mean Corpuscular Hemoglobin 28.9pg (29.0-33.0) Mean Corpuscular Hemoglobin Concent 33.8g/dl (32.0-37.0) Red Cell Distribution Width 20.2% (11.5-14.5) Platelet Count 85480^3/UL (140-415) Mean Platelet Volume 10.1fl (7.4-10.4) Neutrophils % 88.0% (39.0-77.0) Band Neutrophils % 6.0% (0.0-5.0) Lymphocytes % 4.0% (15.0-51.0) Monocytes % 2.0% (0.0-11.0) Neutrophils # 21.610^3/ul (1.6-7.5) Lymphocytes # 1.010^3/ul (0.8-2.9) Monocytes # 0.510^3/ul (0.3-0.9) Platelet Estimate PLT APPEAR ADEQUATE Sodium Level 125mmol/L (135-144) Potassium Level 4.8mmol/L (3.5-5.1) Chloride Level 95mmol/L (97-110) Carbon Dioxide Level 9mmol/L (21-31) Anion Gap 26 (8-16) Blood Urea Nitrogen 18mg/dl (7-20) Creatinine 2.30mg/dl (0.44-1.00) Glucose Level 217mg/dl (70-220) Lactic Acid Level 11.3mmol/L (0.5-2.2) Calcium Level 6.5mg/dl (8.4-10.2) Magnesium Level 2.0mg/dl (1.7-2.5) Total Bilirubin 2.3mg/dl (0.2-1.3) Direct Bilirubin 1.90mg/dl (0.00-0.20) Indirect Bilirubin 0.4mg/dl (0-1.1) Aspartate Amino Transf (AST/SGOT) 1424IU/L (15-46) Alanine Aminotransferase (ALT/SGPT) 398IU/L (13-69) Alkaline Phosphatase 481IU/L (42-121) Creatine Kinase 520IU/L (23-200) Troponin I 0.075ng/ml (0.00-0.12) Total Protein 5.1g/dl (6.1-8.1) Albumin 1.7g/dl (3.3-4.9) Globulin 3.40g/dl (1.3-3.2) Albumin/Globulin Ratio 0.50 Salicylates Level < 1.0mg/dl (5.0-30.0) Acetaminophen Level < 10.0ug/ml (10.0-30.0) Ethyl Alcohol Level < 10.0mg/dl Prothrombin Time 25.2Sec (12.2-14.2) Prothrombin Time Ratio 2.0 INR International Normalized Ratio 2.26 Activated Partial Thromboplast Time Sec (25.0-35.0) Blood Gas Specimen Source Blood arterial Arterial Blood Date Drawn 09/14/2016 1:17:34 AM Arterial Blood pH (Temp corrected) 7.153 (7.350-7.450) Arterial Blood pCO2 (Temp correct) 21.0mmhg (35-45) Arterial Blood pO2 (Temp corrected) 98.7mmHG (80-100.0) Arterial Blood HCO3 7.3mmol/L (22.0-26.0) Arterial Blood Base Excess -20.0mmol/L (-3.0-3) Arterial Blood Oxygen Saturation 95.7mmHG (95.0-98.0) Dhruv Test N/A Arterial Blood Gas Puncture Site Femoral Arterial Blood Carboxyhemoglobin 0.3% (0.0-3.0) Arterial Blood Methemoglobin 0.5% (0.0-1.5) Blood Gas A-a O2 Differential 595.9mmHg (7.0-24.0) Oxyhemoglobin Percent 94.9% (93.0-99.0) Total Hemoglobin 11.5g/dl (12.0-18.0) Blood Gas Temperature 36.0C Blood Gas Respiration Rate 20.0 Blood Gas Actual Respiration Rate 20 Blood Gas Modality VENT - AC FiO2 100.0% Blood Gas Tidal Volume 600.0mL Blood Gas Low PEEP Setting 5.0cmH2O Blood Gas Critical Value Read Back MILLA WAYNE Blood Gas Notified Whom Loly MURILLO JAIL GUARD Blood Gas Notified Time 09/14/2016 1:23:59 AM Test 09/14/16 00:20 09/14/16 01:21 09/14/16 02:17 09/14/16 03:47 Lactic Acid Level 10.7mmol/L (0.5-2.2) 10.9mmol/L (0.5-2.2) Bedside Glucose 113mg/dL (70-220) 108mg/dL (70-220) Prothrombin Time 27.7Sec (12.2-14.2) Prothrombin Time Ratio 2.2 INR International Normalized Ratio 2.54 Activated Partial Thromboplast Time 120.4Sec (25.0-35.0) Test 09/14/16 04:59 09/14/16 05:00 09/14/16 07:53 Bedside Glucose 86mg/dL (70-220) 178mg/dL (70-220) White Blood Count 24.010^3/ul (4.8-10.8) Red Blood Count 3.2110^6/ul (4.20-5.40) Hemoglobin 9.2g/dl (12.0-16.0) Hematocrit 28.6% (37.0-47.0) Mean Corpuscular Volume 89.1fl (82.0-101.0) Mean Corpuscular Hemoglobin 28.7pg (29.0-33.0) Mean Corpuscular Hemoglobin Concent 32.2g/dl (32.0-37.0) Red Cell Distribution Width 20.6% (11.5-14.5) Platelet Count 93641^3/UL (140-415) Mean Platelet Volume 10.2fl (7.4-10.4) Neutrophils % 70.0% (39.0-77.0) Band Neutrophils % 15.0% (0.0-5.0) Lymphocytes % 11.0% (15.0-51.0) Monocytes % 4.0% (0.0-11.0) Eosinophils % % (0.0-7.0) Neutrophils # 16.810^3/ul (1.6-7.5) Lymphocytes # 2.610^3/ul (0.8-2.9) Monocytes # 1.010^3/ul (0.3-0.9) Eosinophils # 10^3/ul (0.0-0.5) Sodium Level 124mmol/L (135-144) Potassium Level 4.3mmol/L (3.5-5.1) Chloride Level 104mmol/L (97-110) Carbon Dioxide Level 7mmol/L (21-31) Anion Gap 17 (8-16) Blood Urea Nitrogen 14mg/dl (7-20) Creatinine 1.47mg/dl (0.44-1.00) Glucose Level 233mg/dl (70-220) Lactic Acid Level 10.8mmol/L (0.5-2.2) Calcium Level 4.6mg/dl (8.4-10.2) Total Bilirubin 1.7mg/dl (0.2-1.3) Direct Bilirubin 1.60mg/dl (0.00-0.20) Indirect Bilirubin 0.1mg/dl (0-1.1) Aspartate Amino Transf (AST/SGOT) IU/L (15-46) Alanine Aminotransferase (ALT/SGPT) 800IU/L (13-69) Alkaline Phosphatase 524IU/L (42-121) Troponin I 0.073ng/ml (0.00-0.12) Total Protein 4.1g/dl (6.1-8.1) Albumin 1.3g/dl (3.3-4.9) Globulin 2.80g/dl (1.3-3.2) Albumin/Globulin Ratio 0.46 TANIA LORENZO Sep 14, 2016 11:24
[2016-09-14] MEDS ORDERED: IMIPENEM-CILAST 500MG IV (PMX) 100 ML IVPB SCH ×2 (12:00→14:00)
--- NOTE | 2016-09-14 13:46 | DS ---
Date/Time of Note Date/Time of Note DATE: 09/14/16 TIME: 13:30 Discharge Summary Admission/Discharge Info Admit Date/Time Sep 14, 2016 at 01:15 Discharge Date/Time Final Diagnosis 1. Severe septic shock, likely from urinary tract infection. 2. Altered mentation/unresponsiveness, secondary to hypoglycemia. 3. Severe hypoglycemia. 4. Ventilator dependent respiratory failure. 5. Presumed acute kidney injury. 6. Likely shock liver. 7. Hyponatremia. Cause of : 1.asystole (minutes) 2. res distress (hours) 3. septic shock from infection (hours) Hospital Course 65-year-old female with a history of diabetes, hypertension, asthma, with probable COPD, depression/anxiety, bipolar disorder, hypothyroidism and cognitive impairment who was brought to the ER from a detention facility for altered mentation and hypoglycemia. When EMS arrived, her blood glucose was found to be less than 20. She was given 1 mg of Glucagon with minimal response. The patient was unresponsive when she was arrived to the ER, and she never lost her pulse. Initial blood pressure documented in the ER when she came in was 144/129 with a heart rate of 115, respiratory rate 16, temperature 98, and oxygen saturation 84%. After she was intubated, an hour later, her blood pressure has been documented to be as low as 53/34. Her ABG on ventilator shows a pH of 7.15, pCO2 of 21, pO2 of 99, bicarbonate of 7. Her initial point of care glucose in the ER was 162 and it was 217 on her BMP. She had multiple lab abnormalities including a sodium of 125, creatinine 2.3, calcium 6.5, but with albumin of 1.7, total bilirubin 2.3, AST 1424, ALT 400, alkaline phosphatase almost 500, WBC of almost 25,000, hemoglobin 10. Her INR was also elevated about 2.5. While the patient was in the ER, she was started on multiple pressors. She was started on D10W for hypoglycemia. Note, however, that the fluid was without sodium and her initial sodium when she came in was still 125. She went to ICU and had been persistently hypotensive and on 4 pressors. Her blood pressure was mostly in the 60s. Epinephrine was also added. On her initial imaging, brain CT showed no acute findings. CT abdomen and pelvis was done and it shows a fairly large medial right thigh hematoma where the right femoral venous line was placed. The patient's family indicated patient was a DNR status and they wanted her to be terminally extubated which was done a short while ago, the patient immediately after that, she did not have any blood pressure, pulse or any spontaneous respirations patient was pronounced at 11:14 AM on 09/14/2016. The patient's family was at bedside. Home Meds Reported Medications Atorvastatin* (Atorvastatin*) 80 Mg Tablet, 80 MG PO QHS, #30 TAB 09/13/16 Amiodarone Hcl* (Amiodarone Hcl*) 200 Mg Tablet, 200 MG PO BID, #60 TAB 09/13/16 Escitalopram Oxalate* (Lexapro*) 10 Mg Tablet, 10 MG PO DAILY, #30 TAB 09/13/16 Pantoprazole* (Pantoprazole*) 40 Mg Tablet.dr, 40 MG PO DAILY, TAB 09/13/16 Furosemide* (Furosemide*) 20 Mg Tablet, 20 MG PO DAILY, #60 TAB 09/13/16 Isosorbide Mononitrate* (Isosorbide Mononitrate*) 30 Mg Tab.er.24h, 30 MG PO DAILY, TAB 09/13/16 Amlodipine Besylate* (Norvasc*) 5 Mg Tablet, 5 MG PO DAILY, TAB 09/13/16 Levothyroxine Sodium* (Levoxyl*) 25 Mcg Tablet, 25 MCG PO BEFORE BREAKFAST, #30 TAB 09/13/16 Discontinued Reported Medications Temazepam (Restoril) 15 Mg Cap, 15 MG PO PRN 07/16/13 Hydrocodone Bit-Acetaminophen* (Kenney*) 1 Tab Tab, 1 TAB GTB PRN 07/16/13 Alprazolam* (Alprazolam*) 0.5 Mg Tablet, 0.5 MG PO Q6HRS PRN 07/16/13 Risperidone (Risperdal) 2 Mg/Tab Tab.rapdis, 2 MG PO QHS 07/16/13 Metoprolol Tartrate* (Lopressor*) 25 Mg Tab, 25 MG PO DAILY 07/16/13 Magnesium Chloride* (Mag 64*) 64 Mg Tabsr, 64 MG PO DAILY 07/16/13 Lisinopril* (Prinivil*) 20 Mg Tablet, 20 MG PO DAILY 07/16/13 Citalopram Hydrobromide* (Celexa*) 20 Mg Tablet, 20 MG PO DAILY 07/16/13 Pending Labs Laboratory Tests Test 09/13/16 22:32 09/13/16 22:50 09/13/16 22:55 09/13/16 23:15 Bedside Glucose 162mg/dL (70-220) White Blood Count 24.610^3/ul (4.8-10.8) Red Blood Count 3.4610^6/ul (4.20-5.40) Hemoglobin 10.0g/dl (12.0-16.0) Hematocrit 29.6% (37.0-47.0) Mean Corpuscular Volume 85.5fl (82.0-101.0) Mean Corpuscular Hemoglobin 28.9pg (29.0-33.0) Mean Corpuscular Hemoglobin Concent 33.8g/dl (32.0-37.0) Red Cell Distribution Width 20.2% (11.5-14.5) Platelet Count 11108^3/UL (140-415) Mean Platelet Volume 10.1fl (7.4-10.4) Neutrophils % 88.0% (39.0-77.0) Band Neutrophils % 6.0% (0.0-5.0) Lymphocytes % 4.0% (15.0-51.0) Monocytes % 2.0% (0.0-11.0) Neutrophils # 21.610^3/ul (1.6-7.5) Lymphocytes # 1.010^3/ul (0.8-2.9) Monocytes # 0.510^3/ul (0.3-0.9) Platelet Estimate PLT APPEAR ADEQUATE Sodium Level 125mmol/L (135-144) Potassium Level 4.8mmol/L (3.5-5.1) Chloride Level 95mmol/L (97-110) Carbon Dioxide Level 9mmol/L (21-31) Anion Gap 26 (8-16) Blood Urea Nitrogen 18mg/dl (7-20) Creatinine 2.30mg/dl (0.44-1.00) Glucose Level 217mg/dl (70-220) Lactic Acid Level 11.3mmol/L (0.5-2.2) Calcium Level 6.5mg/dl (8.4-10.2) Magnesium Level 2.0mg/dl (1.7-2.5) Total Bilirubin 2.3mg/dl (0.2-1.3) Direct Bilirubin 1.90mg/dl (0.00-0.20) Indirect Bilirubin 0.4mg/dl (0-1.1) Aspartate Amino Transf (AST/SGOT) 1424IU/L (15-46) Alanine Aminotransferase (ALT/SGPT) 398IU/L (13-69) Alkaline Phosphatase 481IU/L (42-121) Creatine Kinase 520IU/L (23-200) Troponin I 0.075ng/ml (0.00-0.12) Total Protein 5.1g/dl (6.1-8.1) Albumin 1.7g/dl (3.3-4.9) Globulin 3.40g/dl (1.3-3.2) Albumin/Globulin Ratio 0.50 Salicylates Level < 1.0mg/dl (5.0-30.0) Acetaminophen Level < 10.0ug/ml (10.0-30.0) Ethyl Alcohol Level < 10.0mg/dl Prothrombin Time 25.2Sec (12.2-14.2) Prothrombin Time Ratio 2.0 INR International Normalized Ratio 2.26 Activated Partial Thromboplast Time Sec (25.0-35.0) Blood Gas Specimen Source Blood arterial Arterial Blood Date Drawn 09/14/2016 1:17:34 AM Arterial Blood pH (Temp corrected) 7.153 (7.350-7.450) Arterial Blood pCO2 (Temp correct) 21.0mmhg (35-45) Arterial Blood pO2 (Temp corrected) 98.7mmHG (80-100.0) Arterial Blood HCO3 7.3mmol/L (22.0-26.0) Arterial Blood Base Excess -20.0mmol/L (-3.0-3) Arterial Blood Oxygen Saturation 95.7mmHG (95.0-98.0) Dhruv Test N/A Arterial Blood Gas Puncture Site Femoral Arterial Blood Carboxyhemoglobin 0.3% (0.0-3.0) Arterial Blood Methemoglobin 0.5% (0.0-1.5) Blood Gas A-a O2 Differential 595.9mmHg (7.0-24.0) Oxyhemoglobin Percent 94.9% (93.0-99.0) Total Hemoglobin 11.5g/dl (12.0-18.0) Blood Gas Temperature 36.0C Blood Gas Respiration Rate 20.0 Blood Gas Actual Respiration Rate 20 Blood Gas Modality VENT - AC FiO2 100.0% Blood Gas Tidal Volume 600.0mL Blood Gas Low PEEP Setting 5.0cmH2O Blood Gas Critical Value Read Back MILLA WAYNE Blood Gas Notified Whom Loly MURILLO RCP Blood Gas Notified Time 09/14/2016 1:23:59 AM Test 09/14/16 00:20 09/14/16 01:21 09/14/16 02:17 09/14/16 03:47 Lactic Acid Level 10.7mmol/L (0.5-2.2) 10.9mmol/L (0.5-2.2) Bedside Glucose 113mg/dL (70-220) 108mg/dL (70-220) Prothrombin Time 27.7Sec (12.2-14.2) Prothrombin Time Ratio 2.2 INR International Normalized Ratio 2.54 Activated Partial Thromboplast Time 120.4Sec (25.0-35.0) Test 09/14/16 04:59 09/14/16 05:00 09/14/16 07:53 Bedside Glucose 86mg/dL (70-220) 178mg/dL (70-220) White Blood Count 24.010^3/ul (4.8-10.8) Red Blood Count 3.2110^6/ul (4.20-5.40) Hemoglobin 9.2g/dl (12.0-16.0) Hematocrit 28.6% (37.0-47.0) Mean Corpuscular Volume 89.1fl (82.0-101.0) Mean Corpuscular Hemoglobin 28.7pg (29.0-33.0) Mean Corpuscular Hemoglobin Concent 32.2g/dl (32.0-37.0) Red Cell Distribution Width 20.6% (11.5-14.5) Platelet Count 89582^3/UL (140-415) Mean Platelet Volume 10.2fl (7.4-10.4) Neutrophils % 70.0% (39.0-77.0) Band Neutrophils % 15.0% (0.0-5.0) Lymphocytes % 11.0% (15.0-51.0) Monocytes % 4.0% (0.0-11.0) Eosinophils % % (0.0-7.0) Neutrophils # 16.810^3/ul (1.6-7.5) Lymphocytes # 2.610^3/ul (0.8-2.9) Monocytes # 1.010^3/ul (0.3-0.9) Eosinophils # 10^3/ul (0.0-0.5) Sodium Level 124mmol/L (135-144) Potassium Level 4.3mmol/L (3.5-5.1) Chloride Level 104mmol/L (97-110) Carbon Dioxide Level 7mmol/L (21-31) Anion Gap 17 (8-16) Blood Urea Nitrogen 14mg/dl (7-20) Creatinine 1.47mg/dl (0.44-1.00) Glucose Level 233mg/dl (70-220) Lactic Acid Level 10.8mmol/L (0.5-2.2) Calcium Level 4.6mg/dl (8.4-10.2) Total Bilirubin 1.7mg/dl (0.2-1.3) Direct Bilirubin 1.60mg/dl (0.00-0.20) Indirect Bilirubin 0.1mg/dl (0-1.1) Aspartate Amino Transf (AST/SGOT) IU/L (15-46) Alanine Aminotransferase (ALT/SGPT) 800IU/L (13-69) Alkaline Phosphatase 524IU/L (42-121) Troponin I 0.073ng/ml (0.00-0.12) Total Protein 4.1g/dl (6.1-8.1) Albumin 1.3g/dl (3.3-4.9) Globulin 2.80g/dl (1.3-3.2) Albumin/Globulin Ratio 0.46 CHAGO ASIF Sep 14, 2016 13:46
--- NOTE | 2016-09-14 15:06 | RADRPT ---
PROCEDURE: US Abdomen and Retroperitoneum. CLINICAL INDICATION: Abnormal LFTs and kidney function. TECHNIQUE: Multiple real-time longitudinal and transverse images were acquired of the patient's ab domen and retroperitoneum utilizing a curved array transducer. COMPARISON: Correlation with CT from the same day. FINDINGS: The liver is enlarged and demonstrates coarsened echotexture without focal mass or intrahepatic bili douglas dilatation. Mildly sluggish pulsatile hepatopetal flow is seen within the main portal vein. The gallbladder is contracted but grossly normal. There is no evidence of pericholecystic fluid or gall bladder wall thickening or gallstones. No intra or extrahepatic biliary dilatation is seen. The comm on bile duct measures 3.8 mm in maximal dimension. The visualized portions of the pancreas are unr emarkable with obscuration of the tail of the pancreas. The spleen is pain the prominent measuring 13.4 cm. Trace perihepatic free fluid is present. A small right pleural effusion is also seen. The right kidney measures 10.0 cm in length. The left kidney measures 10.8 cm in length. There i s normal echogenicity within the kidneys. There are no perinephric fluid collections. No hydroneph rosis, mass, or calculus is seen. The aorta and IVC are unremarkable. IMPRESSION: 1. Hepatomegaly with coarsened hepatic echotexture, suggesting cirrhosis. 2. Mildly sluggish pulsatile hepatopetal flow within the portal vein, may be secondary to portal hy pertension. 3. Splenomegaly. 4. Mild perihepatic ascites. 5. Small right pleural effusion. RPTAT: JJ .Ag Diggs MD, Date Time Electronically viewed and signed by .Ag Diggs MD, MD on 09/14/2016 15:05 .A/
[2016-09-14] MEDS ORDERED: VANCOMYCIN 1 GM in NS 250 ML IVPB SCH (18:00)
[2016-09-14 22:40] LABS: ADD UMIC YES; URINE BILIRUBIN (Dip) 2+ (NEGATIVE); URINE BLOOD (Dip) 3+ (NEGATIVE); URINE COLOR DK. YELLOW (YELLOW); URINE GLUCOSE (Dip) NEGATIVE (NEGATIVE); URINE KETONES (Dip) TRACE (NEGATIVE); URINE LEUKOCYTE ESTERASE (Dip) 3+ (NEGATIVE); URINE NITRITE (Dip) NEGATIVE (NEGATIVE); URINE TOTAL PROTEIN (Dip) 4+ (NEGATIVE); URINE UROBILINOGEN (Dip) 0.2 E.U./dL (0.1-1.0)
[2016-09-14 22:54] LABS: BACTERIA,URINE MANY; BARBITURATES Negative (NEGATIVE); BENZODIAZEPINES Negative (NEGATIVE); ICTOTEST NEGATIVE (NEGATIVE); TRANSITIONAL EPI CELLS,URINE MODERATE
[2016-09-14 22:55] LABS: OPIATES Negative (NEGATIVE)
[2016-09-14 23:06] LABS: CANNABINOIDS Negative (NEGATIVE); COCAINE Negative (NEGATIVE)
[2016-09-16 07:54] LABS: AADO2 Arterial 431.4 mmHg (7.0-24.0); Allen Test ACCEPTAB; Arterial Base Excess -18.6 mmol/L (-3.0-3); Arterial COHb 0.2 % (0.0-3.0); Arterial Fraction of Oxyhgb 98.5 % (93.0-99.0); Arterial HCO3 8.2 mmol/L (22.0-26.0); Arterial MetHb 0.4 % (0.0-1.5); Arterial Total Hemglobin 10.5 g/dl (12.0-18.0); Blood Gas Mean Airway Pressure 14; MODE VENT - AC
== END 2016-09-14 11:15 | disposition expired | DRG 871 ==
LOC: E/R 22:09 → ICU 09-14 01:15
PROVIDERS: ADMIT Internal Medicine; ATTEND Internal Medicine
PROC: 0BH17EZ Insertion of Endotracheal Airway into Trachea, Via Natural or Artificial Opening (ICD-10-PCS; principal; 2016-09-14)
PROC: 5A1935Z Respiratory Ventilation, Less than 24 Consecutive Hours (ICD-10-PCS; 2016-09-14)
DX: A41.9 Sepsis, unspecified organism (principal); R65.21 Severe sepsis with septic shock; K72.00 Acute and subacute hepatic failure without coma; J96.90 Respiratory failure, unspecified, unspecified whether with hypoxia or hypercapnia; N39.0 Urinary tract infection, site not specified; N17.9 Acute kidney failure, unspecified; E87.1 Hypo-osmolality and hyponatremia; I10 Essential (primary) hypertension; E16.2 Hypoglycemia, unspecified; Z66 Do not resuscitate
CPT/HCPCS: 31500; 36415; 36600; 70450; 71010; 74176; 76700; 76937; 80053; 80306; 80307; 81001; 81003; 82550; 82553; 82803; 82962; 83525; 83605; 83735; 84484; 84681; 85025; 85610; 85730; 87040; 93005; 94002; 94003; 94770; 96365; 96375; C9113; J0171; J0610; J0743; J1265; J2370; J3370; J7030; J7042; J7050; J7060